=== PATIENT | female | born 1975 | race American Indian/Alaskan Native ===

== ENCOUNTER 2019-02-03 10:26 | Emergency (ER) | payer OTHER ==
--- NOTE | 2019-02-03 10:41 | Emergency Department Report ---
ED Abdominal Pain HPI - General Chief Complaint: Abdominal Pain Stated Complaint: STOMACH PAIN Time Seen by Provider: 02/03/19 10:35 Source: patient Mode of arrival: Ambulatory Limitations: No Limitations - History of Present Illness Initial Comments: This is a 43-year-old female here reports that she is having left lower abdominal pain pointing to her left pelvic area. Last menstrual period was 01/12/2019. Pain is 6 out of 10 and cramping and this started early this morning. She says she took some Gas-X and ibuprofen but pain still persistent. Denies any nausea vomiting. Denies any urinary symptoms. Denies any blood in her urine. Denies any back pain, chest pain, shortness of breath, cough or shortness of breath. Patient has history of tubal ligation and mitral valve prolapse. Denies any fever or chills. MD Complaint: abdominal pain -: This morning Location: LLQ, suprapubic Radiation: none Migration to: no migration Severity: moderate Severity scale (0 -10): 6 Quality: cramping Consistency: constant Improves With: nothing Worsens With: nothing Context: other (unknown) Associated Symptoms: denies: nausea, vomiting, diarrhea, fever, chills, constipation, dysuria, hematemesis, hematochezia, melena, hematuria, anorexia, syncope Treatments Prior to Arrival: NSAIDs - Related Data LMP Date: 01/12/19 Previous Rx's Medication Instructions Recorded Last Taken Type Docusate Sodium [Colace] 100 mg PO BID #20 capsule 02/03/19 Unknown Rx Naproxen [Naprosyn] 500 mg PO Q12H PRN #12 tablet 02/03/19 Unknown Rx Ondansetron [Zofran ODT TAB] 8 mg PO Q8HR PRN #12 tab.rapdis 02/03/19 Unknown Rx Oxycodone HCl/Acetaminophen 1 each PO Q6HR PRN #16 tablet 02/03/19 Unknown Rx [Percocet 7.5/325 mg] Allergies Allergy/AdvReac Type Severity Reaction Status Date / Time minocycline Allergy Unknown Verified 02/03/19 10:28 ED Review of Systems ROS: Stated complaint: STOMACH PAIN Other details as noted in HPI Constitutional: denies: chills, fever ENT: denies: throat pain Respiratory: denies: cough, shortness of breath, wheezing Cardiovascular: denies: chest pain, palpitations, dyspnea on exertion, edema, syncope Gastrointestinal: abdominal pain. denies: nausea, vomiting, diarrhea, constipation, hematemesis, melena, hematochezia Genitourinary: denies: urgency, dysuria, frequency, hematuria, discharge, abnormal menses, dyspareunia Musculoskeletal: denies: back pain, joint swelling, arthralgia, myalgia Skin: denies: rash Neurological: denies: headache, numbness, paresthesias, abnormal gait, vertigo ED Past Medical Hx - Past Medical History Previous Medical History?: Yes Additional medical history: MVP - Surgical History Past Surgical History?: Yes Additional Surgical History: Tubaligation, Right Carpel tunnel surgery - Family History Family history: hypertension - Social History Smoking Status: Never Smoker Substance Use Type: Alcohol - Medications Home Medications: Home Medications Medication Instructions Recorded Confirmed Last Taken Type Docusate Sodium [Colace] 100 mg PO BID #20 capsule 02/03/19 Unknown Rx Naproxen [Naprosyn] 500 mg PO Q12H PRN #12 tablet 02/03/19 Unknown Rx Ondansetron [Zofran ODT TAB] 8 mg PO Q8HR PRN #12 tab.rapdis 02/03/19 Unknown Rx Oxycodone HCl/Acetaminophen 1 each PO Q6HR PRN #16 tablet 02/03/19 Unknown Rx [Percocet 7.5/325 mg] ED Physical Exam - General Limitations: No Limitations General appearance: alert, in no apparent distress - Head Head exam: Present: atraumatic, normocephalic, normal inspection - Eye Eye exam: Present: normal appearance, PERRL, EOMI - ENT ENT exam: Present: normal exam, normal orophraynx, mucous membranes moist - Neck Neck exam: Present: normal inspection, full ROM. Absent: tenderness, lymphadenopathy - Respiratory Respiratory exam: Present: normal lung sounds bilaterally. Absent: respiratory distress, chest wall tenderness - Cardiovascular Cardiovascular Exam: Present: normal rhythm, tachycardia (tachycardic 05), normal heart sounds - GI/Abdominal GI/Abdominal exam: Present: soft, tenderness (left lower quadrant), normal bowel sounds. Absent: distended, guarding, rebound, rigid, organomegaly, mass, bruit, pulsatile mass, hernia - Extremities Exam Extremities exam: Present: normal inspection, full ROM, normal capillary refill, other (No cce. + 2 pulses in all extremities, no neurovascular compromise). Absent: tenderness, pedal edema, joint swelling - Back Exam Back exam: Present: normal inspection, full ROM, other (ambulates without any difficulties). Absent: tenderness, CVA tenderness (R), CVA tenderness (L), muscle spasm, paraspinal tenderness, vertebral tenderness, rash noted - Neurological Exam Neurological exam: Present: alert, oriented X3, normal gait - Psychiatric Psychiatric exam: Present: normal affect, normal mood - Skin Skin exam: Present: warm, dry, intact, normal color. Absent: rash ED Course Vital Signs 02/03/19 02/03/19 10:29 15:46 Temperature 98.1 F Pulse Rate 105 H 94 H Respiratory 16 16 Rate Blood Pressure 142/94 Blood Pressure 112/68 [Left] O2 Sat by Pulse 100 99 Oximetry - Reevaluation(s) Reevaluation #1: 02/03/19 10:48 Patient is stable at present and she was given Toradol 60 mg IM and awaiting lab results. Reevaluation #2: 02/03/19 13:53 Patient given [place] 5/325 2 tablets by mouth for pain which relieved her pain. Reevaluation #3: 02/03/19 13:50 I spoke with DISTRICT GAUGER on-call Dr. Song regarding CT findings for hemorrhagic cyst and size along with free fluid and pelvis and radiologist report more than likely ruptured hemorrhagic cyst and she reports that this patient pain is controlled at patient can be seen outpatient to call to schedule an appointment tomorrow for outpatient evaluation. Reevaluation #4: 02/03/19 14:25 Patient reported that her pain was not better and she feels like she is having contraction and she is very tearful. Patient was given morphine 4 mg IM along with Zofran ODT and we will reevaluate. Reevaluation #5: 02/03/19 15:46 Patient now reports that she is feeling a lot better and her pain is down to 2/10 post morphine. She has no nausea. Her family members at her bedside vital signs stable she is afebrile and patient will be discharged home to follow up with Dr. Song and she is in agreement. ED Medical Decision Making - Lab Data Result diagrams: 02/03/19 11:07 02/03/19 11:07 Lab Results 02/03/19 02/03/19 02/03/19 Range/Units 10:43 11:07 11:07 WBC 3.9 L (4.5-11.0) K/mm3 RBC 3.97 (3.65-5.03) M/mm3 Hgb 12.3 (10.1-14.3) gm/dl Hct 36.1 (30.3-42.9) % MCV 91 (79-97) fl MCH 31 (28-32) pg MCHC 34 (30-34) % RDW 12.8 L (13.2-15.2) % Plt Count 216 (140-440) K/mm3 Lymph % (Auto) 22.4 (13.4-35.0) % Hendricks % (Auto) 4.8 (0.0-7.3) % Eos % (Auto) 0.3 (0.0-4.3) % Baso % (Auto) 0.7 (0.0-1.8) % Lymph # 0.9 L (1.2-5.4) K/mm3 Hendricks # 0.2 (0.0-0.8) K/mm3 Eos # 0.0 (0.0-0.4) K/mm3 Baso # 0.0 (0.0-0.1) K/mm3 Seg Neutrophils % 71.8 H (40.0-70.0) % Seg Neutrophils # 2.8 (1.8-7.7) K/mm3 Sodium 140 (137-145) mmol/L Potassium 4.3 (3.6-5.0) mmol/L Chloride 103.5 (98-107) mmol/L Carbon Dioxide 23 (22-30) mmol/L Anion Gap 18 mmol/L BUN 9 (7-17) mg/dL Creatinine 0.6 L (0.7-1.2) mg/dL Estimated GFR > 60 ml/min BUN/Creatinine Ratio 15 % Glucose 110 H (65-100) mg/dL Calcium 8.9 (8.4-10.2) mg/dL Total Bilirubin 0.20 (0.1-1.2) mg/dL AST 14 (5-40) units/L ALT 13 (7-56) units/L Alkaline Phosphatase 43 (35-129) units/L Total Protein 7.5 (6.3-8.2) g/dL Albumin 4.2 (3.9-5) g/dL Albumin/Globulin Ratio 1.3 % Lipase 12 L (13-60) units/L Urine Color Yellow (Yellow) Urine Turbidity Slightly-cloudy (Clear) Urine pH 5.0 (5.0-7.0) Ur Specific [place] 1.014 (1.003-1.030) Urine Protein 30 mg/dl (Negative) mg/dL Urine Glucose (UA) Neg (Negative) mg/dL Urine Ketones Neg (Negative) mg/dL Urine Blood Mod (Negative) Urine Nitrite Neg (Negative) Urine Bilirubin Neg (Negative) Urine Urobilinogen < 2.0 (<2.0) mg/dL Ur Leukocyte Esterase Neg (Negative) Urine WBC (Auto) 2.0 (0.0-6.0) /HPF Urine RBC (Auto) 2.0 (0.0-6.0) /HPF U Epithel Cells (Auto) 2.0 (0-13.0) /HPF Urine Bacteria (Auto) 3+ (Negative) /HPF Urine Mucus Few /HPF Urine HCG, Qual Negative (Negative) Urine culture sent - Radiology Data Radiology results: report reviewed Patient had CT scan of the abdomen and pelvis without contrast which was dictated by radiologist and report reviewed by myself. Please see report below. Findings [facility] [address] [id number] Cat Scan Report Signed Patient: AIDE MANLEY MR#: [id number] : 1975 Acct:[id number] Age/Sex: 43 / F ADM Date: 02/03/19 Loc: ED Attending Dr: Ordering Physician: ROMERO HENDERSON Date of Service: 02/03/19 Procedure(s): CT abdomen pelvis wo con Accession Number(s): [id number] cc: ROMERO HENDERSON CT ABDOMEN AND PELVIS WITHOUT CONTRAST INDICATION / CLINICAL INFORMATION: hematuria with right lower quadrant pain radiating. TECHNIQUE: Axial CT images were obtained through the abdomen and pelvis without IV contrast. All CT scans at this location are performed using CT dose reduction for ALARA by means of automated exposure control. COMPARISON: None available. FINDINGS: LOWER CHEST: No significant abnormality. LIVER: No significant abnormality. GALLBLADDER: No significant abnormality. BILE DUCTS: No significant abnormality. PANCREAS: No significant abnormality. SPLEEN: No significant abnormality. ADRENALS: No significant abnormality. RIGHT KIDNEY and URETER: Small subcentimeter hyperdense cyst on the lateral mid kidney. No stones or hydronephrosis. LEFT KIDNEY and URETER: Small nonobstructing intrarenal stones. No ureteral stone or hydronephrosis. STOMACH and SMALL BOWEL: No significant abnormality. COLON: No significant abnormality. APPENDIX: No significant abnormality. PERITONEUM: Small to moderate amount of free fluid in the pelvis. Fluid is mildly hyperdense measuring up to 38 Hounsfield units. No free air. No fluid collection. LYMPH NODES: No significant adenopathy. AORTA and ARTERIES: No significant abnormality. IVC and VEINS: No significant abnormality. URINARY BLADDER: No significant abnormality. REPRODUCTIVE ORGANS: Uterus appears normal. There is a large, complex adnexal lesion located anterior to the uterine fundus. This lesion has fat density, soft tissue density, calcification, and hemorrhagic density characteristic of hemorrhagic ovarian dermoid. Lesion measures about 5.5 x 7.0 x 9.8 cm. It is difficult to determine with which adnexa this lesion is associated. Bilateral tubal ligation devices are present. ADDITIONAL FINDINGS: None. SKELETAL SYSTEM: No significant abnormality. IMPRESSION: 1. Large hemorrhagic ovarian dermoid cyst in the anterior pelvis adjacent to the fundus of the uterus. 2. Small to moderate amount of free fluid in the pelvis. This free fluid has a possible hemorrhagic component suggesting possible rupture of the dermoid cyst. 3. Gynecologic consultation is recommended. Signer Name: Petrona Obregon MD Signed: 02/03/2019 12:45 PM Workstation Name: [id number] Transcribed By: DT Dictated By: Franklyn Obregon MD Electronically Authenticated By: Franklyn Obregon MD Signed Date/Time: 02/03/19 1245 DD/DT: 10/ Medical Decision Making Patient here with pelvic pain and found to have hemorrhagic ovarian cyst, bacteria and urine and renal calculus without any blockage or hydronephrosis. This was explained to patient in detail and she voiced understanding. I referred patient to DISTRICT G[facility]GER and her primary care physician which she does have one who is Dr. Deyanira Mckenna. Patient stable and discharged home with prescription for Zofran, naproxen, Percocet and Colace and I instructed her to increase her fluid intake to prevent constipation she voiced understanding she is aware that if her symptoms return that she should return to the emergency room which she needs to call tomorrow to schedule an appointment for follow-up visit with DISTRICT GAUGER. Vital signs are stable and she is afebrile and her pain is at 2/10 and she says she feels a lot better. - Differential Diagnosis pyelonephritis, colitis, tubal , ovarian cysts, fibroids, UTI Critical care attestation.: If time is entered above; I have spent that time in minutes in the direct care of this critically ill patient, excluding procedure time. ED Disposition Clinical Impression: Hemorrhagic ovarian cyst, Pelvic pain, Bacteria in urine Disposition: TO HOME OR SELFCARE Is pt being admited?: No Does the pt Need Aspirin: No Condition: Stable Instructions: Ovarian Cyst (ED), Abdominal Pain (ED) Additional Instructions: Please call Dr. Gomez in the morning to schedule an appointment for follow- up visit hemorrhagic ovarian cyst If your condition worsens, please return to the emergency room. Take pain medication as prescribed but please do not take Percocet if you driving or operating heavy machinery as this medication causes drowsiness Take medication for nausea Please drink plenty of fluid as medication for pain which is Percocet will cause constipation and also take Colace twice daily to prevent constipation. You have some bacteria in the urine and urine cultures were sent and if there are signs of urinary tract infection we will call you and starting an antibiotic. Prescriptions: Docusate Sodium [Colace] 100 mg PO BID #20 capsule Naproxen [Naprosyn] 500 mg PO Q12H PRN #12 tablet PRN Reason: mild to moderate pain Oxycodone HCl/Acetaminophen [Percocet 7.5/325 mg] 1 each PO Q6HR PRN #16 tablet PRN Reason: severe pain Ondansetron [Zofran ODT TAB] 8 mg PO Q8HR PRN #12 tab.rapdis PRN Reason: nausea and her vomiting Referrals: DEYANIRA MCKENNA MD [Primary Care Provider] - 02/04/19 SREE SONG MD [Staff Physician] - 02/04/19 Forms: Accompanied Note, Work/School Release Form(ED)
[2019-02-03] MEDS ORDERED: TORADOL IM ONE (10:43)
[2019-02-03 10:54] LABS: Bacteria,Urine 3+ /HPF (Negative); Bilirubin,Urine NEG (Negative); Blood,Urine MOD (Negative); Color,Urine Yellow (Yellow); Mucus,Urine FEW /HPF; Urobilinogen,Urine < 2.0 mg/dL (<2.0)
[2019-02-03 10:55] LABS: HCG Qualitative,Urine Negative (Negative)
[2019-02-03 11:23] LABS: Basophils % (Auto) 0.7 % (0.0-1.8); Eosinophils % (Auto) 0.3 % (0.0-4.3); Hematocrit 36.1 % (30.3-42.9); Hemoglobin 12.3 gm/dl (10.1-14.3); Lymphocytes # (Auto) 0.9 K/mm3 (1.2-5.4); Lymphocytes % (Auto) 22.4 % (13.4-35.0); Mean Corpuscular HGB Conc 34 % (30-34); Mean Corpuscular Volume 91 fl (79-97); Monocytes # (Auto) 0.2 K/mm3 (0.0-0.8); Monocytes % (Auto) 4.8 % (0.0-7.3); Platelet Count 216 K/mm3 (140-440); Red Blood Count 3.97 M/mm3 (3.65-5.03); Red Cell Distribution Width 12.8 % (13.2-15.2)
[2019-02-03 11:41] LABS: Alanine Aminotransferase 13 units/L (7-56); Albumin 4.2 g/dL (3.9-5); BUN/Creatinine Ratio 15; Blood Urea Nitrogen 9 mg/dL (7-17); Calcium 8.9 mg/dL (8.4-10.2); Hemolysis Index 21
--- NOTE | 2019-02-03 12:49 | Cat Scan Report ---
CT ABDOMEN AND PELVIS WITHOUT CONTRAST INDICATION / CLINICAL INFORMATION: hematuria with right lower quadrant pain radiating. TECHNIQUE: Axial CT images were obtained through the abdomen and pelvis without IV contrast. All CT scans at [facility] location are performed using CT dose reduction for ALARA by means of automated exposure control. COMPARISON: None available. FINDINGS: LOWER CHEST: No significant abnormality. LIVER: No significant abnormality. GALLBLADDER: No significant abnormality. BILE DUCTS: No significant abnormality. PANCREAS: No significant abnormality. SPLEEN: No significant abnormality. ADRENALS: No significant abnormality. RIGHT KIDNEY and URETER: Small subcentimeter hyperdense cyst on the lateral mid kidney. No stones or hydronephrosis. LEFT KIDNEY and URETER: Small nonobstructing intrarenal stones. No ureteral stone or hydronephrosis. STOMACH and SMALL BOWEL: No significant abnormality. COLON: No significant abnormality. APPENDIX: No significant abnormality. PERITONEUM: Small to moderate amount of free fluid in the pelvis. Fluid is mildly hyperdense measurin g up to 38 Hounsfield units. No free air. No fluid collection. LYMPH NODES: No significant adenopathy. AORTA and ARTERIES: No significant abnormality. IVC and VEINS: No significant abnormality. URINARY BLADDER: No significant abnormality. REPRODUCTIVE ORGANS: Uterus appears normal. There is a large, complex adnexal lesion located anterior to the uterine fundus. This lesion has fat density, soft tissue density, calcification, and hemorrha gic density characteristic of hemorrhagic ovarian dermoid. Lesion measures about 5.5 x 7.0 x 9.8 cm. It is difficult to determine with which adnexa this lesion is associated. Bilateral tubal ligation de vices are present. ADDITIONAL FINDINGS: None. SKELETAL SYSTEM: No significant abnormality. IMPRESSION: 1. Large hemorrhagic ovarian dermoid cyst in the anterior pelvis adjacent to the fundus of the uterus . 2. Small to moderate amount of free fluid in the pelvis. This free fluid has a possible hemorrhagic c omponent suggesting possible rupture of the dermoid cyst. 3. Gynecologic consultation is recommended. Signer Name: Petrona Obregon MD Signed: 02/03/2019 12:45 PM Workstation Name: [id number]
[2019-02-03] MEDS ORDERED: NORCO 5/325 ONE (13:23)
[2019-02-03] MEDS ORDERED: NORCO 5/325 PO ONE (13:23)
[2019-02-03] MEDS ORDERED: MORPHINE IM ONE (14:04)
[2019-02-03] MEDS ORDERED: ZOFRAN ODT PO ONE ×2 (14:04→15:41)
[2019-02-03] MEDS ORDERED: PERCOCET 5/325 PO ONE (15:41)
[2019-02-03 15:47] VITALS: BP 112/68
[2019-02-03] MEDS ORDERED: NAPROSYN PO ONE (16:00)
== END 2019-02-03 16:06 | disposition home or self-care (01) ==
LOC: ED 10:26
DX: N83.202 Unspecified ovarian cyst, left side (principal); R82.71 Bacteriuria
CPT/HCPCS: 36415; 74176; 80053; 81001; 81025; 83690; 85025; 87086; 96372; 99284; J1885; J2270; Q0162

== ENCOUNTER 2019-02-05 08:07 | Day surgery (SDC) | payer OTHER ==
[~2019-02-05 08:07] MED LIST: LACTATED RINGERS 1,000 ML IV SCH; NEURONTIN PO NR; VERSED IV NR
[2019-02-05] MEDS ORDERED: DIPRIVAN 10 MG/ML IV ONE (08:16)
[2019-02-05] MEDS ORDERED: DILAUDID ONE (08:16)
[2019-02-05] MEDS ORDERED: PEPCID IV NR (08:29)
--- NOTE | 2019-02-05 08:33 | Anesthesia Consultation ---
Anesthesia Consult and Med Hx Date of service: 02/05/19 - Airway Anesthetic Teeth Evaluation: Good ROM Head & Neck: Adequate Mental/Hyoid Distance: Adequate Mallampati Class: Class II Intubation Access Assessment: Probably Good - Pre-Operative Health Status ASA Pre-Surgery Classification: ASA2 Proposed Anesthetic Plan: General - Pulmonary Hx Respiratory Symptoms: Yes (sinusitis) - Cardiovascular System Hx Valvular Heart Disease: Yes (mitral valve prolapse)
--- NOTE | 2019-02-05 08:33 | Short Stay Summary ---
Short Stay Documentation Date of service: 02/05/19 Narrative H&P: 43y/o presents to the ED with the complaint of pelvic pain and discomfort. CT scan demonstrated an adnexal mass measuring 9.8x7.0x5.5cm. The mass was cystic with fatty components and calcifications likely consistent with a dermoid. The patient states she has been managing her pain with meds but elects to proceed with removal of the mass. - History Principal diagnosis: Dermoid cyst Past Medical History: other (MVP) Past Surgical History: Other (tubal ligation; carpal tunnel) - Allergies and Medications Current Medications: Allergies minocycline Allergy (Verified 02/03/19 10:28) Unknown Home Medications Medication Instructions Recorded Confirmed Last Taken Type Docusate Sodium [Colace] 100 mg PO BID #20 capsule 02/03/19 Unknown Rx Naproxen [Naprosyn] 500 mg PO Q12H PRN #12 tablet 02/03/19 Unknown Rx Ondansetron [Zofran ODT TAB] 8 mg PO Q8HR PRN #12 tab.rapdis 02/03/19 Unknown Rx Oxycodone HCl/Acetaminophen 1 each PO Q6HR PRN #16 tablet 02/03/19 Unknown Rx [Percocet 7.5/325 mg] Active Medications Celecoxib (Celebrex) 200 mg PO PREOP NR Stop: 02/05/19 23:59 Famotidine (Pepcid) 20 mg IV PREOP NR Stop: 02/05/19 23:59 Gabapentin (Neurontin) 300 mg PO PREOP NR Stop: 02/05/19 23:59 Lactated Ringer's (Lactated Ringers) 1,000 mls @ 100 mls/hr IV DIRECT JODY Midazolam HCl (Versed) 2 mg IV PREOP NR Stop: 02/05/19 23:59 - Physical exam General appearance: no acute distress Integumentary: no rash HEENT: Atraumatic Lungs: Clear to auscultation Breasts: deferred Heart: Regular rate Gastrointestinal: normal Female Genitourinary: deferred Rectal Exam: deferred - Brief post op/procedure progress note Date of procedure: 02/05/19 Pre-op diagnosis: Adnexal Mass Post-op diagnosis: same Procedure: Laparoscopy; left ovarian oophorectomy Anesthesia: GETA Surgeon: SREE NOGUERA Estimated blood loss: other (200ml) Pathology: list (left ovary) Specimen disposition: to lab Condition: stable - Hospital course Hospital course: The patient was admitted the day of surgery underwent a laparoscopy and left oophorectomy for a left adnexal mass. See operative note for details of surgery. Postoperative course was uneventful. - Disposition Condition at discharge: Good Disposition: DC-01 TO HOME OR SELFCARE Short Stay Discharge Plan Activity: other (pelvic rest for 1 week) Diet: regular Additional Instructions: Scheduled follow-up with Dr. Noguera in 2 weeks Prescriptions: Hydromorphone HCl [Dilaudid] 4 mg PO Q8H PRN #30 tablet PRN Reason: Pain, Mild (1-3)
--- NOTE | 2019-02-05 08:33 | Anesthesia Day of Surgery ---
Anesthesia Day of Surgery - Day of Surgery Patient Examined: Yes Patient H&P Reviewed: Yes Patient is NPO: Yes
[2019-02-05] MEDS ORDERED: MARCAINE 0.5% INFILTRATI ONE ×2 (08:54→09:45)
[2019-02-05] MEDS ORDERED: ANCEF/STERILE WATER 2 GM/20 ML 2 GM/20 ML SYRINGE IV NR (09:00)
[2019-02-05] MEDS ORDERED: NACL 0.9% IR ONE (09:45)
[2019-02-05] MEDS ORDERED: XYLOCAINE MPF 2% ONE (10:20)
[2019-02-05] MEDS ORDERED: ZEMURON IV ONE (10:20)
[2019-02-05] MEDS ORDERED: ZOFRAN ONE (10:20)
[2019-02-05] MEDS ORDERED: DECADRON ONE (10:20)
[2019-02-05] MEDS ORDERED: BLOXIVERZ ONE (11:00)
[2019-02-05] MEDS ORDERED: ROBINUL ONE (11:00)
[2019-02-05] MEDS ORDERED: TORADOL ONE (11:08)
[2019-02-05] MEDS ORDERED: LACTATED RINGERS 1,000 ML ONE (11:10)
--- NOTE | 2019-02-05 11:11 | Operative Report ---
Operative Report Operative Report: Date of surgery: 02/05/2019 Preoperative diagnosis: Adnexal mass; acute pelvic pain Postoperative diagnosis: Same as above Procedure: Laparoscopy; left oophorectomy Surgeon: Danyell Gomez M.D. Anesthesia: General endotracheal anesthesia Estimated blood loss: 200 mL Findings: Left hemorrhagic cyst consistent with a dermoid tumor Indication: 43-year-old 013 presents to the emergency department with acute right lower quadrant pelvic pain. CT scan demonstrated a 9.8 cm pelvic mass with evidence of fatty issue and calcifications. There was noted to be fluid in the pelvis consistent with a hemorrhagic cyst. Procedure: The patient was taken to the operating room and given general endotra cheal anesthesia without complication. The patient is prepped and draped in a normal sterile fashion. A bivalve speculum was placed in the patient's vagina and a single-tooth tenaculum was placed on the anterior lip of the cervix .A uterine acorn manipulator was placed, and the bivalve speculum was then removed. Attention was then turned to the patient's abdomen where a 5 mm infraumbilical skin incision was then made. A Veress needle was placed and peritoneal entry was verified water-filled syringe. Insufflation of the peritoneal cavity was performed with CO2 gas. A 5 mm trocar was placed and the laparoscope was then inserted. The patient was then placed in Trendelenburg. A 11 mm suprapubic skin incision was then made. Under direct visualization a11 mm trocar was then placed. General survey of the patient's abdomen revealed an enlarged left ovary with active bleeding coming from the hemorrhagic cyst. There was noted to be blood in the posterior cul-de-sac. The fallopian tube was then followed out to the fimbriated end. An additional left lateral 5 mm trocar was then placed under direct visualization. The adnexal mass was grasped with the grasper. The LigaSure device was used to coagulate and transect the blood supply to the ovary. An Endo Catch bag was placed through the 11 mm trocar site. The specimen was placed in the Endo Catch bag and removed through the s uprapubic incision. The mass was noted to have cystic and solid components. A yellow fluid was extruded from the cyst likely consistent with fatty tissue. The suprapubic site was closed with the Tano Milner device with 0 Vicryl. The lateral trocar was removed under direct visualization. The pneumoperitoneum was then released. The 5 mm trocar laparoscope was then removed. The skin incisions were then closed with 4-0 Monocryl. The incisions were injected with quarter percent Marcaine. Dressings were applied to the incision. The vaginal instruments were then removed atraumatically. Then successfully extubated and taken to the recovery room. All sponge laps and needle counts were correct x2.
--- NOTE | 2019-02-05 11:50 | Post Anesthesia Evaluation ---
- Post Anesthesia Evaluation Patient Participated: Yes Airway Patent: Yes Stable Respiratory Function: Yes Nausea/Vomiting: No Temp > 96.8F: Yes Pain Manageable: Yes Adequeate Hydration: Yes Anesthesia Complications: No Block Receding Appropriately: Not Applicable Patient on Ventilator: No
[2019-02-05 12:26] VITALS: BP 112/70
== END 2019-02-05 13:30 | disposition home or self-care (01) ==
LOC: OR 08:07
PROVIDERS: ATTEND Obstetrics & Gynecology
DX: R19.09 Other intra-abdominal and pelvic swelling, mass and lump (principal); R10.2 Pelvic and perineal pain; N83.202 Unspecified ovarian cyst, left side; Z98.51 Tubal ligation status; Z98.890 Other specified postprocedural states; Z79.899 Other long term (current) drug therapy; Z88.8 Allergy status to other drugs, medicaments and biological substances
CPT/HCPCS: 58661; 88305; 88311; J1100; J1170; J1885; J2250; J2405; J2704; J2710; J7120